=== PATIENT | female | born 1980 | race Caucasian/White ===

== ENCOUNTER → 2019-11-27 | Outpatient (CLI) | payer OTHER ==
--- NOTE | 2019-11-30 11:20 | MM ---
Reason for exam: screening (asymptomatic). Last mammogram was performed 4 years and 4 months ago. History: Reductions of both breasts, September 2014. Taking hormonal contraceptives for 4 years beginning at age 29. Physical Findings: A clinical breast exam by your physician is recommended on an annual basis and results should be correlated with mammographic findings. MG Screening Mammo w CAD Bilateral CC and MLO view(s) were taken. Prior study comparison: July 25, 2015, bilateral MG screening mammo w CAD. July 12, 2014, bilateral MG screening mammo w CAD. The breast tissue is heterogeneously dense. This may lower the sensitivity of mammography. Finding: Architectural distortion in the upper outer quadrant of the right breast with new focal asymmetry and adjacent regional indeterminate calcifications increased in numbers. Developing asymmetry left posterior upper outer quadrant 8cm from the nipple. ASSESSMENT: Incomplete: need additional imaging evaluation, BI-RAD 0 RECOMMENDATION: Special view mammogram of both breasts. If lesion persists on supplemental views, image directed ultrasound is recommended. [facility] will attempt to contact patient to return for supplemental views and ultrasound if indicated.
== END | disposition home or self-care (01) ==
LOC: RADMAMWWP 16:21
PROVIDERS: ATTEND Obstetrics & Gynecology
DX: Z12.31 Encounter for screening mammogram for malignant neoplasm of breast (principal)
CPT/HCPCS: 77067

== ENCOUNTER → 2022-02-21 | Outpatient (CLI) | payer OTHER ==
--- NOTE | 2022-02-21 08:48 | MM ---
Reason for Exam: Follow-up at short interval from prior study. Additional evaluation requested from abnormal screening. Last mammogram was performed 2 year(s) and 3 month(s) ago. Patient History: Menarche at age 13. Hormonal Contraceptives, starting at age 29 for 4 years. 09/2014, Bilateral Reduction. Last menstrual period: 02/19/2022 Risk Values: Erin 5 year model risk: 0.4%. NCI Lifetime model risk: 6.6%. Film Views: Bilateral CC views were taken. Bilateral MLO views were taken. Prior Study Comparison: 07/12/2014 Bilateral Screening Mammogram, [facility]. 07/20/2014 Right Diagnostic Ultrasound, [facility]. 07/25/2015 Bilateral Screening Mammogram, [facility]. 11/27/2019 Bilateral Screening Mammogram, [facility]. Tissue Density: The breast tissue is heterogeneously dense. This may lower the sensitivity of mammography. Findings: Analyzed By CAD. Mammogram There is a persistent rounded density measuring 13 mm 8 cm from the nipple in the mid middle position right breast. Ultrasound is recommended for additional evaluation. Additional asymmetric densities are present which are stable from comparison. No increase in size, spiculated or lobular masses or clustered microcalcifications are evident.. Technique: Method: Targeted. Findings: The upper outer quadrant of the right breast, the axilla of the right breast and the retroareolar of the right breast were scanned. There is a benign-appearing 1.2 x 0.8 x 1.2 cm hypoechoic structure with good through transmission and posterior wall enhancement compatible with a simple cyst at the 12:00 position 6 cm from the nipple. This appears to correspond to the mammographic abnormality. No suspicious solid lesions are evident. Overall Assessment: Benign, BI-RAD 2 Assessment: MG 3D diag mammo w/cad STEPHAN - Bilateral: Benign, BI-RAD 2. US breast limited RT - Right: Benign, BI-RAD 2. Management: Screening Mammogram of both breasts in 1 year. 1. A clinical breast exam by your physician is recommended on an annual basis and results should be correlated with mammographic findings. Results were given to the patient verbally at the time of exam. 2. Patient should continue monthly self breast exam. 3. Negative mammogram should not preclude additional follow-up of suspicious palpable abnormalities. Electronically signed and approved by: Mason Alexis D.O. Radiologis
== END | disposition home or self-care (01) ==
LOC: RADMAMWWP 07:14
PROVIDERS: ATTEND Obstetrics & Gynecology
DX: N60.01 Solitary cyst of right breast (principal)
CPT/HCPCS: 77062; 77066